=== PATIENT | male | born 1980 | race Caucasian/White ===

== ENCOUNTER 2018-02-04 11:53 | Emergency (ER) | payer OTHER ==
[~2018-02-04] VITALS: Ht 185.4 cm; Wt 99.8 kg
[~2018-02-04 11:53] MED LIST: VICODIN 500 MG-1 TAB PO
[2018-02-04] MEDS ORDERED: SERTRALINE HYD100 MG PO (12:28)
[2018-02-04 13:03] LABS: BASO # 0.1 10*3/uL (0.0-0.1); BASO % 1.5 % (0.0-1.0); EOS # 0.3 10*3/uL (0.0-0.4); EOS % 9.2 % (1.0-4.0); HEMATOCRIT 36.4 % (42.0-52.0); HEMOGLOBIN 10.4 g/dl (14.0-18.0); LYMPH # 0.9 10*3/uL (1.3-4.4); LYMPH % 25.2 % (27.0-41.0); MEAN CELL VOLUME 74.4 fl (80.0-94.0); MEAN CORPUSCULAR HGB 21.3 pg (27.0-31.0); MEAN CORPUSCULAR HGB CONC 28.6 g/dl (33.0-37.0); MEAN PLATELET VOLUME 10.1 fl (9.6-12.3); MONO # 0.3 10*3/uL (0.1-1.0); NEUT # 1.9 10*3/uL (2.3-7.9); NEUT % 55.8 % (47.0-73.0); PLATELET COUNT AUTOMATED 266 10*3/uL (130-400); RED BLOOD COUNT 4.89 10*6/uL (4.50-5.90); RED CELL DISTRI WIDTH 17.2 % (0-14.5); WHITE BLOOD COUNT 3.4 10*3/uL (4.8-10.8)
[2018-02-04 13:11] LABS: ACT PARTIAL THROMBO TIME 21.4 SECONDS (20.8-31.5)
[2018-02-04 13:18] LABS: ALBUMIN 3.7 gm/dl (3.1-4.5); ALKALINE PHOSPHATASE 69 U/L (45-117); BUN 15 mg/dl (7-24); CHLORIDE 108 mmol/L (98-107); CREATININE 1.03 mg/dL (0.70-1.30); POTASSIUM 3.9 mmol/L (3.5-5.1); SGOT/AST 15 IU/L (3-35); SGPT/ALT 32 U/L (12-78); SODIUM 139 mmol/L (136-145); TOTAL PROTEIN 7.9 gm/dL (6.4-8.2)
[2018-02-04] MEDS ORDERED: NAPROSYN500 MG PO (13:51)
[2018-02-04] MEDS ORDERED: CEPHALEXIN500 M1 PO (13:51)
[2018-03-08] MEDS ORDERED: GAVISCON ES TA1 EACH PO (15:49)
[2018-03-08] MEDS ORDERED: PROTONIX40 MG PO (15:49)
== END 2018-02-04 13:58 | disposition home or self-care (01) ==
LOC: ED 11:53
PROVIDERS: Emergency Medicine
DX: I80.02 Phlebitis and thrombophlebitis of superficial vessels of left lower extremity (principal); D50.9 Iron deficiency anemia, unspecified; D72.819 Decreased white blood cell count, unspecified; Z79.899 Other long term (current) drug therapy

== ENCOUNTER → 2018-03-08 | Day surgery (SDC) | payer OTHER ==
[~2018-03-08] VITALS: Ht 185.4 cm; Wt 99.8 kg
[~2018-03-08] MED LIST changes: +CEPHALEXIN500 M1 PO; +GAVISCON ES TA1 EACH PO; +NAPROSYN500 MG PO; +PROTONIX40 MG PO; +SERTRALINE HYD100 MG PO
--- NOTE | ~2018-03-08 | O ---
[place], [place] OPERATIVE NOTE NAME: JESSICA SCHAEFFER UNIT #: [id number] ROOM: DOCTOR: DANNY KENT MD BIRTHDATE: [birth year] DOS: 03/08/2018 GASTROENDOSCOPIC REPORT This 32-year-old patient who presented with anemia, undergoing investigation. He is guaiac positive. SOCIAL HISTORY: Nonsmoker. He drinks 2 beers per day. PAST SURGICAL HISTORY: Deviated septum repair. PAST MEDICAL HISTORY: Depression. ALLERGIES: No known medication. FAMILY HISTORY: Noncontributory. PROCEDURE: Today's procedure part of investigation is panendoscopy plus biopsy and photographic series and colonoscopy. PREMEDICATION: Propofol. SCOPE: Olympus forward-viewing gastroscope Q10 video. REPORT: After putting the patient in left lateral position and application of lubricant to the scope, the scope was introduced. Thereafter, under direct visualization, advanced through the length of esophagus without difficulty. At the distal esophagus, evidence of reflux esophagitis and multiple esophageal ulcer above esophagogastric junction with deepest scarring was noticed. Photographed biopsy done. A small hiatal hernia encountered. Gastric pouch was entered. Gastritis seen. Antral biopsy obtained. Duodenal bulb, second and third part within normal limits. The patient extubated, tolerated procedure well. IMPRESSION: Multiple distal esophageal ulcers secondary to chronic reflux, hiatal hernia, gastritis, status post biopsy ruling out H. pylori. Protonix 40 mg daily. Gaviscon 1 at bedtime. FOLLOWUP: Routinely with you in office. Visit with us in 2 weeks in the office for biopsy reassessment. PLAN AND DISCUSSION: Meanwhile, I am going to proceed with colonoscopy to assure there is no synchronous causes of his microcytic anemia. [place], [place] OPERATIVE NOTE NAME: JESSICA SCHAEFFER UNIT #: [id number] ROOM: DOCTOR: DANNY KENT MD BIRTHDATE: [birth year] DANNY KENT MD CM:OPRECORD:OPERATIVE NOTE 1551 [id number] DANNY KENT MD 03/08/18 1624 interface
--- NOTE | ~2018-03-08 | O ---
[place], [place] OPERATIVE NOTE NAME: JESSICA SCHAEFFER UNIT #: [id number] ROOM: DOCTOR: DANNY KENT MD BIRTHDATE: [birth year] DOS: 03/08/2018 GASTROENDOSCOPIC REPORT HISTORY: A 37-year-old patient who has presented with anemia, undergoing investigation. His upper endoscopy showed multiple distal esophageal ulcers. PROCEDURE: Today's procedure part of investigation is colonoscopy. PREMEDICATION: Propofol. SCOPE: Olympus folding colonoscope 10L video. REPORT: After putting the patient in left lateral position and application of lubricant to rectal pouch and digital examination, scope was introduced. Thereafter, under direct visualization, advanced through the length of colon without difficulty. Base of the cecum explored, appendiceal was identified, ileocecal valve was defined. Air was suctioned out gradually from ascending, transverse, descending colon. The patient extubated, tolerated procedure well. IMPRESSION: Normal colonoscopic examination. PLAN AND DISCUSSION: Source of GI blood loss and anemia is his esophageal ulcers, which is going to be under treatment. Photographic series have been obtained. Attached to the chart for feature reference and documentation. Thank you very much again for your kind referral. DANNY KENT MD CM:OPRECORD:OPERATIVE NOTE 1551 [id number] DANNY KENT MD 03/08/18 1632 interface
[2018-03-08 13:30] VITALS: BP 119/79
[2018-03-08 15:30] VITALS: BP 101/71
[2018-03-08 15:45] VITALS: BP 112/68
[2018-03-08 15:57] VITALS: BP 119/73
== END | disposition home or self-care (01) ==
LOC: SDC 03-05 14:45
DX: K29.50 Unspecified chronic gastritis without bleeding (principal); K22.10 Ulcer of esophagus without bleeding; K21.0 Gastro-esophageal reflux disease with esophagitis; K44.9 Diaphragmatic hernia without obstruction or gangrene; J45.909 Unspecified asthma, uncomplicated; F41.9 Anxiety disorder, unspecified; F32.9 Major depressive disorder, single episode, unspecified; Z87.01 Personal history of pneumonia (recurrent); Z98.890 Other specified postprocedural states; Z79.899 Other long term (current) drug therapy

== ENCOUNTER 2018-03-12 15:07 | Emergency (ER) | payer OTHER ==
[~2018-03-12] VITALS: Ht 185.4 cm; Wt 97.5 kg
--- NOTE | ~2018-03-12 | EKG ---
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
[2018-03-12 15:51] LABS: BASO % 1.1 % (0.0-1.0); EOS # 0.2 10*3/uL (0.0-0.4); EOS % 4.1 % (1.0-4.0); HEMATOCRIT 30.8 % (42.0-52.0); HEMOGLOBIN 8.8 g/dl (14.0-18.0); LYMPH # 0.9 10*3/uL (1.3-4.4); LYMPH % 25.8 % (27.0-41.0); MEAN CELL VOLUME 73.2 fl (80.0-94.0); MEAN CORPUSCULAR HGB 20.9 pg (27.0-31.0); MEAN CORPUSCULAR HGB CONC 28.6 g/dl (33.0-37.0); MONO # 0.3 10*3/uL (0.1-1.0); MONO % 7.1 % (3.0-9.0); NEUT # 2.3 10*3/uL (2.3-7.9); NEUT % 61.6 % (47.0-73.0); PLATELET COUNT AUTOMATED 284 10*3/uL (130-400); RED BLOOD COUNT 4.21 10*6/uL (4.50-5.90); RED CELL DISTRI WIDTH 17.5 % (0-14.5); WHITE BLOOD COUNT 3.7 10*3/uL (4.8-10.8)
[2018-03-12 16:05] LABS: ALBUMIN 3.2 gm/dl (3.1-4.5); ALKALINE PHOSPHATASE 87 U/L (45-117); BUN 11 mg/dl (7-24); CHLORIDE 107 mmol/L (98-107); CREATININE 1.06 mg/dL (0.70-1.30); LIPASE 290 U/L (73-393); SGOT/AST 40 IU/L (3-35); SGPT/ALT 57 U/L (12-78); SODIUM 140 mmol/L (136-145); TOTAL PROTEIN 7.5 gm/dL (6.4-8.2)
[2018-03-12 16:09] LABS: ACT PARTIAL THROMBO TIME 23.4 SECONDS (20.8-31.5); TROPONIN I < 0.015 ng/ml (<0.045)
== END 2018-03-12 21:25 | disposition short-term general hospital (02) ==
LOC: ED 15:07
PROVIDERS: Emergency Medicine
DX: I82.402 Acute embolism and thrombosis of unspecified deep veins of left lower extremity (principal); I26.99 Other pulmonary embolism without acute cor pulmonale; K22.10 Ulcer of esophagus without bleeding; Z79.899 Other long term (current) drug therapy

== ENCOUNTER → 2018-03-27 | Outpatient (CLI) | payer OTHER | END | disposition home or self-care (01) | LOC: US 09:30 | DX: R10.11 Right upper quadrant pain (principal) ==

== ENCOUNTER 2019-05-19 09:02 | Emergency (ER) | payer OTHER ==
[~2019-05-19] VITALS: Wt 86.2 kg
--- NOTE | ~2019-05-19 | EKG ---
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
--- NOTE | ~2019-05-19 | EKG ---
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
[2019-05-19 09:25] LABS: EOS # 0.2 10*3/uL (0.0-0.4); EOS % 5.2 % (1.0-4.0); HEMATOCRIT 47.6 % (42.0-52.0); HEMOGLOBIN 16.2 g/dl (14.0-18.0); LYMPH % 24.9 % (27.0-41.0); MEAN CELL VOLUME 97.3 fl (80.0-94.0); MEAN CORPUSCULAR HGB 33.1 pg (27.0-31.0); MEAN PLATELET VOLUME 10.7 fl (9.6-12.3); MONO # 0.3 10*3/uL (0.1-1.0); MONO % 7.2 % (3.0-9.0); NEUT # 2.5 10*3/uL (2.3-7.9); NEUT % 61.5 % (47.0-73.0); PLATELET COUNT AUTOMATED 192 10*3/uL (130-400); RED BLOOD COUNT 4.89 10*6/uL (4.50-5.90); WHITE BLOOD COUNT 4.1 10*3/uL (4.8-10.8)
[2019-05-19 09:42] LABS: ALBUMIN 4.4 gm/dl (3.1-4.5); ALKALINE PHOSPHATASE 77 U/L (45-117); BUN 16 mg/dl (7-24); CHLORIDE 102 mmol/L (98-107); CREATININE 1.23 mg/dL (0.70-1.30); POTASSIUM 4.4 mmol/L (3.5-5.1); SGOT/AST 27 IU/L (3-35); SGPT/ALT 42 U/L (12-78); SODIUM 136 mmol/L (136-145); TOTAL PROTEIN 8.1 gm/dL (6.4-8.2)
[2019-05-19 09:43] LABS: ACT PARTIAL THROMBO TIME 25.6 SECONDS (20.0-32.1); INTERNATIONAL NORM RATIO 0.9 (2.0-3.5)
[2019-05-19 09:58] LABS: TROPONIN I < 0.015 ng/ml (<0.045)
[2019-05-19] MEDS ORDERED: IBU800 MG PO (10:18)
== END 2019-05-19 13:11 | disposition home or self-care (01) ==
LOC: ED 09:02
PROVIDERS: Emergency Medicine
DX: R07.89 Other chest pain (principal); R09.1 Pleurisy; F17.200 Nicotine dependence, unspecified, uncomplicated; Z79.899 Other long term (current) drug therapy

== ENCOUNTER 2020-05-11 13:00 | Emergency (ER) | payer BC ==
[~2020-05-11] VITALS: Ht 185.4 cm; Wt 90.7 kg
[~2020-05-11 13:00] MED LIST changes: +IBU800 MG PO
[2020-05-11 13:24] LABS: BASO % 1.1 % (0.0-1.0); EOS # 0.2 10*3/uL (0.0-0.4); EOS % 4.4 % (1.0-4.0); HEMATOCRIT 46.4 % (42.0-52.0); LYMPH # 1.2 10*3/uL (1.3-4.4); LYMPH % 34.4 % (27.0-41.0); MEAN CELL VOLUME 90.8 fl (80.0-94.0); MEAN CORPUSCULAR HGB 31.3 pg (27.0-31.0); MEAN CORPUSCULAR HGB CONC 34.5 g/dl (33.0-37.0); MEAN PLATELET VOLUME 10.2 fl (9.6-12.3); MONO # 0.3 10*3/uL (0.1-1.0); MONO % 6.9 % (3.0-9.0); NEUT # 1.9 10*3/uL (2.3-7.9); NEUT % 52.4 % (47.0-73.0); PLATELET COUNT AUTOMATED 191 10*3/uL (130-400); RED BLOOD COUNT 5.11 10*6/uL (4.50-5.90); WHITE BLOOD COUNT 3.6 10*3/uL (4.8-10.8)
[2020-05-11 13:35] LABS: ACT PARTIAL THROMBO TIME 25.2 SECONDS (20.0-32.1)
[2020-05-11 13:39] LABS: ALBUMIN 3.9 gm/dl (3.1-4.5); ALKALINE PHOSPHATASE 67 U/L (45-117); BUN 12 mg/dl (7-24); CHLORIDE 108 mmol/L (98-107); CREATININE 1.17 mg/dL (0.70-1.30); SGOT/AST 23 IU/L (3-35); SGPT/ALT 42 U/L (12-78); SODIUM 140 mmol/L (136-145); TOTAL PROTEIN 7.5 gm/dL (6.4-8.2)
[2020-05-11 13:40] LABS: TROPONIN I < 0.015 ng/ml (<0.045)
[2020-05-11] MEDS ORDERED: NAPROSYN500 MG PO (15:51)
== END 2020-05-11 15:53 | disposition home or self-care (01) ==
LOC: ED 13:00
PROVIDERS: Emergency Medicine
DX: R09.1 Pleurisy (principal); Z79.899 Other long term (current) drug therapy

== ENCOUNTER 2021-05-23 16:49 | Emergency (ER) | payer BC ==
[~2021-05-23] VITALS: Ht 185.4 cm; Wt 93.0 kg
[2021-05-23 20:06] LABS: BASO # 0.1 10*3/uL (0.0-0.1); BASO % 1.1 % (0.0-1.0); EOS # 0.2 10*3/uL (0.0-0.4); EOS % 2.6 % (1.0-4.0); HEMATOCRIT 47.2 % (42.0-52.0); LYMPH # 1.6 10*3/uL (1.3-4.4); MEAN CELL VOLUME 91.7 fl (80.0-94.0); MEAN CORPUSCULAR HGB 31.7 pg (27.0-31.0); MEAN CORPUSCULAR HGB CONC 34.5 g/dl (33.0-37.0); MONO # 0.3 10*3/uL (0.1-1.0); MONO % 5.5 % (3.0-9.0); NEUT % 64.3 % (47.0-73.0); PLATELET COUNT AUTOMATED 219 10*3/uL (130-400); RED BLOOD COUNT 5.15 10*6/uL (4.50-5.90); RED CELL DISTRI WIDTH 11.8 % (0-14.5); WHITE BLOOD COUNT 6.2 10*3/uL (4.8-10.8)
[2021-05-23 20:24] LABS: ALKALINE PHOSPHATASE 68 U/L (45-117); BUN 13 mg/dl (7-24); CHLORIDE 109 mmol/L (98-107); CREATININE 1.12 mg/dL (0.70-1.30); POTASSIUM 4.1 mmol/L (3.5-5.1); SGOT/AST 33 IU/L (3-35); SGPT/ALT 58 U/L (12-78); SODIUM 140 mmol/L (136-145); TOTAL PROTEIN 7.6 gm/dL (6.4-8.2)
[2021-05-23 20:27] LABS: TROPONIN I < 0.015 ng/ml (<0.045)
[2021-05-23] MEDS ORDERED: CEPHALEXIN500 M1 PO (23:31)
[2021-05-23] MEDS ORDERED: XARELTO10 MG PO (23:31)
== END 2021-05-24 00:12 | disposition home or self-care (01) ==
LOC: ED 16:49
PROVIDERS: Physician Assistant
DX: I80.02 Phlebitis and thrombophlebitis of superficial vessels of left lower extremity (principal)